=== PATIENT | male | born 1975 | race Caucasian/White ===

== ENCOUNTER → 2019-05-06 | Outpatient (CLI) | payer BC ==
[~2019-05-06] MED LIST: ANAPROX DS550 MG PO; CEPHALEXIN500 M1 PO; FLEXERIL10 MG PO; HYDROCODONE BIT1 T11 PO; MOTRIN800 MG PO; VICODIN 5/500 505 MG PO
== END | disposition home or self-care (01) ==
LOC: RAD 14:22
DX: M53.86 Other specified dorsopathies, lumbar region (principal); M25.551 Pain in right hip